=== PATIENT | female | born 1955 | race Caucasian/White ===

== ENCOUNTER 2017-12-25 11:56 | Emergency (ER) | payer MEDICAID ==
[~2017-12-25] VITALS: Ht 157.5 cm; Wt 62.0 kg
[2017-12-25 11:58] VITALS: BP 145/74; PULSE 79; RESP 16; TEMP 98.3; O2SAT 97
--- NOTE | 2017-12-25 13:54 | PD ---
HPI Chief Complaint: Injury Time Seen by Provider: 13:43 Travel History International Travel<30 days: No Contact w/Intl Traveler<30days: No Traveled to known affect area: No History of Present Illness HPI 62-year-old female presents to the emergency department for evaluation of left wrist injury that occurred last night. She states she tripped over her own feet and fell yesterday. She denies any head injury or LOC. No neck pain or back pain. No chest pain or abdominal pain. No nausea, vomiting, diarrhea. She has been ambulatory without difficulty. Her only complaint is left dorsal wrist pain since the fall. Pain is 10/10 without radiation, aching and throbbing. Patient has a Velcro left wrist brace in place. She is not on anticoagulants. No other complaints. Moderate severity. Movement exacerbates pain. Resting will help alleviate pain. PFSH Past Medical History ?: Not Social History Alcohol Use: No Tobacco Use: Yes Substance Use: No Allergies-Medications (Allergen,Severity, Reaction): Coded Allergies: No Known Allergies (Unverified , 12/25/17) Reported Meds & Prescriptions Reported Meds & Active Scripts Active Tramadol (Tramadol HCl) 50 Mg Tab 50 Mg PO Q6H PRN Reported Duoneb (Ipratropium-Albuterol Neb) 0.5-2.5 Mg/3 Ml Neb 1 Nebule INH Q6HR NEB Celexa (Citalopram Hydrobromide) 20 Mg Tab 20 Mg PO DAILY Protonix (Pantoprazole Sodium) 40 Mg Tab 40 Mg PO DAILY Atorvastatin (Atorvastatin Calcium) 80 Mg Tab 80 Mg PO HS Vitamin D2 (Ergocalciferol) 2,000 Unit Tab 50,000 Units PO DAILY Metoprolol Tartrate 50 Mg Tab 50 Mg PO BID Cyanocobalamin Inj (Cyanocobalamin) 1,000 Mcg/Ml Inj 1,000 Mcg SQ Q30D Plavix (Clopidogrel Bisulfate) 75 Mg Tab 75 Mg PO DAILY Review of Systems Except as stated in HPI: all other systems reviewed are Neg Physical Exam Narrative GENERAL: Well-nourished, well-developed female patient, afebrile. SKIN: Focused skin assessment warm/dry. HEAD: Normocephalic. Atraumatic. EYES: No scleral icterus. No injection or drainage. NECK: Supple, trachea midline. No JVD or lymphadenopathy. CARDIOVASCULAR: Regular rate and rhythm without murmurs, gallops, or rubs. Left radial pulse 2+. RESPIRATORY: Breath sounds equal bilaterally. No accessory muscle use. Lungs sounds are clear to auscultation. GASTROINTESTINAL: Abdomen soft, non-tender, nondistended. MUSCULOSKELETAL: No cyanosis, or edema. Patient has tenderness over left dorsal wrist with reduced range of motion due to pain. No obvious deformity. She has full sensation to the distal left upper extremity. BACK: Nontender without obvious deformity. No CVA tenderness. 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 No evidence of fracture. Rudy Borrego MD Differential Diagnosis Wrist fracture versus sprain versus contusion Narrative Course 62-year-old female presents to the emergency department for evaluation of left wrist injury that occurred last night when she tripped and fell. She denies any other injury. X-ray of the left wrist no evidence of acute fracture, subluxation of the thumb , chronic. I discussed with patient who verbalizes agreement. She'll be discharged with a prescription for naproxen for pain. She has a wrist splint that she is already using. She is instructed ice and elevate. She verbalizes agreement. The patient was discharged in stable condition with instructions, including return instructions and follow up instructions. Diagnosis Primary Impression: Left wrist sprain Qualified Codes: S63.502A - Unspecified sprain of left wrist, initial encounter Referrals: Primary Care Physician call for appointment Patient Instructions: General Instructions, Narcotic given in the ED, Wrist Sprain (ED) Additional Instructions: Wear your wrist splint for support. Ice for 20 mins on, 20 mins off. Elevate. Take Tramadol as directed as needed for pain. Follow up with your primary care physician. Return to the emergency department for any acute, worsening of symptoms. Med/Other Pt SpecificInfo: Prescription(s) given Scripts Tramadol (Tramadol) 50 Mg Tab 50 MG PO Q6H Y for PAIN, #16 TAB 0 Refills Prov: Shelli Alexander 12/25/17 Disposition: 01 DISCHARGE HOME Condition: Stable Shelli Alexander Dec 25, 2017 13:54
[2017-12-25] MEDS ORDERED: ACETAMINOPHEN/HYDROcodone 325 MG/5 MG TAB PO ONE (14:00)
[2017-12-25] MEDS ORDERED: IPRASOL INH (14:14)
[2017-12-25] MEDS ORDERED: METO50TA PO (14:14)
[2017-12-25] MEDS ORDERED: ATOR80TA45 PO (14:14)
[2017-12-25] MEDS ORDERED: PLAV75TA29 PO (14:14)
[2017-12-25] MEDS ORDERED: CYAN1000P SQ (14:14)
[2017-12-25] MEDS ORDERED: ERGO2000 PO (14:14)
[2017-12-25] MEDS ORDERED: CELE20TA PO (14:14)
[2017-12-25] MEDS ORDERED: PROT40TA PO (14:14)
--- NOTE | 2017-12-25 14:48 | RADRPT ---
EXAM DATE/TIME: 12/25/2017 14:00 [place] COMPARISON: No previous studies available for comparison. INDICATIONS : Left wrist pain post fall. MEDICAL HISTORY : None. SURGICAL HISTORY : None. ENCOUNTER: Initial ACUITY: 2 days PAIN SCORE: 8/10 LOCATION: Left wrist. FINDINGS: 3 views left wrist. Bone alignment within normal limits. No evidence of fracture. Small thumb carpom etacarpal joint osteophytes and radial subluxation of the thumb metacarpal at the CMC joint. CONCLUSION: Thumb CMC joint osteoarthritic findings with radial subluxation of the metacarpal at the CMC joint. N o evidence of fracture. Rudy Borrego MD on December 25, 2017 at 14:44 Board Certified Radiologist. This report was verified electronically.
[2017-12-25] MEDS ORDERED: TRAM50TA PO (16:02)
[2017-12-25 16:09] VITALS: BP 135/70; PULSE 70; RESP 14; O2SAT 98
== END 2017-12-25 16:15 | disposition home or self-care (01) ==
LOC: NEPD 11:56
DX: S63.502A Unspecified sprain of left wrist, initial encounter (principal); W01.0XXA Fall on same level from slipping, tripping and stumbling without subsequent striking against object, initial encounter
CPT/HCPCS: 73110; 99283

== ENCOUNTER 2018-09-28 05:20 | Inpatient (IN) ==
[2018-09-28] MEDS ORDERED: Metoprolol Tartrate 25 MG Tablet PO ONE (05:48)
[2018-09-28] MEDS ORDERED: Chlorhexidine Gluconate 2% 1 Pack (2 Cloths) TOPICAL ONE (05:48)
[2018-09-28] MEDS ORDERED: Sodium Chlor 0.9% Inj 500 ML IV.SIG SCH (06:00)
--- NOTE | 2018-09-28 06:28 | XR ---
EXAM DATE: 09/28/2018 6:14 AM EDT AGE/SEX: 62 years / Female INDICATIONS: Evaluate for pneumonia, pneumothorax, or communicable diseases. CLINICAL DATA: This is the patient's initial encounter. Patient reports that signs and symptoms have been present for 1 day and indicates a pain score of 0/10. MEDICAL/SURGICAL HISTORY: None. None. COMPARISON: [facility], CT CHEST W/O CONTRAST, 08/02/2018. . FINDINGS: Faint nodular opacity seen of the right upper lobe. Radiographically, lungs otherwise appear clear. N o pneumonia. No pleural effusion or pneumothorax. Emphysema is noted. Heart size stable, within normal limits. CONCLUSION: No pneumonia, pneumothorax or evidence of communicable diseases. Faint nodular right upper lobe opaci ty without definite change from the prior CT. Emphysema.. Electronically signed by: Porter Cordero MD 09/28/2018 6:27 AM EDT
[2018-09-28] MEDS ORDERED: Bupivacaine 0.5% Inj 50 ML MDV Vial ONE (06:33)
[2018-09-28] MEDS ORDERED: ceFAZolin 2 GM Premix Inj 2 GM/50 ML PIGGYBACK IV.SIG ONE (06:33)
[2018-09-28] MEDS ORDERED: Nitroglycerin SL (Override) 0.4 MG Tab SL PRN (09:38)
[2018-09-28] MEDS ORDERED: Bisacodyl 10 MG Supp RECTAL PRN (09:39)
[2018-09-28] MEDS ORDERED: Post-op Orders (for Pharmacy) OTHER STA (09:39)
--- NOTE | 2018-09-28 10:01 | P.OP ---
- Preoperative Diagnosis (1) Lung mass (2) COPD (chronic obstructive pulmonary disease) Postoperative Diagnosis: same Date of procedure: 09/28/18 Procedure: Right thoracoscopic exploration for excisional biopsy right lung mass, bleb resection Anesthesia: MOISES Surgeon: Tejal Escalear MD Youth Liaison Officer: Porter Bartlett Estimated blood loss (mL): 50 Pathology: other (RUL bleb/lung biopsy, RUL mass) Operation and Findings: Indications: The patient is an 62y/o female with a hypermetabolic right upper lobe mass. Specimen: 1. RUL Bleb 2. RUL mass Drains: 32F chest tube Procedure Details After adequate general anesthesia the patient was placed in the left lateral decubitus position and the right chest was prepped and draped in usual manner. A small anterior port incision was performed and electrocautery was used to obtain hemostasis and carry the dissection down through the fascia. A port was placed posteriorly followed by the camera. Visualization was excellent. A second posterior port was positioned at ~6th intercostal space. Exploration of the right hemithorax was significant for diffuse parenchymal disease. The mass seen on chest CT could not be visualized with the camera, therefore a third lateral incision was performed to allow for palpation of the upper lobe in order to localize the small mass on CT_PET scan. A large upper lobe bleb was resected with a surgical stapler. A small nodule consistent with the imaging studies was found in the lateral RUL. The mass was resected using a surgical stapler. A 32F chest tube was positioned through the anterior port, and secured with a 0-silk suture. The lung was ventilated and no significant air leaks were found. The subcutaneous tissues of the posterior and lateral ports were approximated running 2-0 Vicryl suture and the skin was approximated using running 4-0 Monocryl subcuticular stitch. 0.5% Marcaine was infiltrated for postoperative analgesia. All sponge and history counts were correct at the close the procedure and the patient was transferred to the PACU in stable condition.
[2018-09-28] MEDS ORDERED: *morphine SULFATE 8 MG/ML PERIprocedure ONLY ONE (10:24)
[2018-09-28] MEDS ORDERED: *HYDROmorphone PF Inj 1 MG/ML Ampul PERIprocedural Use ONLY ONE ×2 (10:33→10:44)
--- NOTE | 2018-09-28 10:53 | XR ---
EXAM DATE: 09/28/2018 10:39 AM EDT AGE/SEX: 62 years / Female INDICATIONS: Post op ,right chest tube. CLINICAL DATA: This is the patient's initial encounter. Patient reports that signs and symptoms have been present for 1 day and indicates a pain score of 10/10. MEDICAL/SURGICAL HISTORY: . Hypertension. Congestive heart failure. Chronic obstructive pulmona ry disease. None. . RT. thorocotomy COMPARISON: [facility] [place], CHEST 1V SINGLE AP, 09/28/2018. . FINDINGS: A single AP view of the chest demonstrates increased density in the right upper lung. Right-sided devika st tubes are seen. No pneumothorax. Left lung relatively clear. Heart normal in size. There is some v olume loss on the right CONCLUSION: 1. Increased density in the right lung. 2. Right-sided chest tubes without pneumothorax. Electronically signed by: Polo Balderrama MD 09/28/2018 10:52 AM EDT
[2018-09-28] MEDS: Ketorolac Inj 30 MG/ML (IVP) Vial IV.PUSH SCH ×3 (10:57→23:03)
[2018-09-28] MEDS ORDERED: Naloxone Inj 0.4 MG/ML Vial ONE (11:16)
[2018-09-28] MEDS ORDERED: Succinylcholine Inj 200 MG/10 ML Vial ONE (11:19)
[2018-09-28] MEDS ORDERED: Dexmedetomidine Inj 200 MCG in Sodium Chlor 0.9% Inj 48 ML IV.CONT PRN (11:32)
--- NOTE | 2018-09-28 12:47 | P.PNCV ---
- Note Subjective/Hospital Course: pt initially seen in [facility] by Dr Escalera 62yr/ female hx of tobacco abuse, COPD presented to Dr Liz with a right upper lobe spiculated mass, as well as lytic lesions of the right 9th rib and sternum. She underwent percutaneous biopsies of the lung and rib lesion which were non-diagnostic. FEV1 0.8 liters, 35% predicted PMH : CHF, COPD, tobacco abuse, CAD, [place] ( stent 2014 ) HTN 09/28 pt electively admitted for surgery : Right thoracoscopic exploration for excisional biopsy right lung mass, bleb resection Objective: Vital Signs - 24 hr 09/28/18 06:12 09/28/18 10:00 09/28/18 10:15 Temperature 97.5 F L 97.6 F Pulse Rate 63 60 62 Respiratory Rate 20 12 15 Blood Pressure 180/94 H 144/65 H 133/61 Pulse Oximetry 94 L 93 L 95 09/28/18 10:30 09/28/18 10:45 09/28/18 11:00 Temperature Pulse Rate 74 66 63 Respiratory Rate 20 19 14 Blood Pressure 138/79 122/73 107/58 L Pulse Oximetry 90 L 93 L 89 L 09/28/18 11:15 09/28/18 11:30 09/28/18 11:45 Temperature Pulse Rate 76 74 71 Respiratory Rate 20 19 Blood Pressure 137/81 147/89 H 123/62 Pulse Oximetry 74 L 93 L 94 L 09/28/18 12:00 09/28/18 12:15 Temperature Pulse Rate 65 62 Respiratory Rate 18 13 Blood Pressure 99/57 L 100/55 L Pulse Oximetry 92 L 92 L Labs: Laboratory Results - last 12 hr 09/28/18 06:05 Blood Type O Positive Blood Type Recheck Required Antibody Screen Negative
--- NOTE | 2018-09-28 14:28 | ECG ---
Date Performed: 09/28/2018 Time Performed: 07:04:23 PTAGE: 62 years EKG: Sinus rhythm POSSIBLE INFERIOR MYOCARDIAL INFARCTION , OF INDETERMINATE AGE ABNORMAL ECG NO PREVIOUS TRACING DOCTOR: Leo Funez Interpretating Date/Time 09/28/2018 14:26:04
[2018-09-28] MEDS ORDERED: *Ondansetron Inj 4 MG/2 ML Vial PERIprocedural Use ONLY ONE (16:12)
[2018-09-28] MEDS ORDERED: *Promethazine Inj 25 MG/ML Vial PERIprocedural use ONLY ONE (17:07)
[2018-09-28] MEDS: Senna/Docusate Sodium 8.6/50 MG Tablet PO SCH (20:49)
[2018-09-28] MEDS: Metoprolol Tartrate 50 MG Tablet PO SCH (20:49)
[2018-09-28] MEDS ORDERED: FLUTICASONE SALMETEROL PO SCH (21:00)
[2018-09-28] MEDS ORDERED: GLYCOPYRROLATE FORMOTEROL PO SCH (21:00)
[2018-09-29] MEDS: Ketorolac Inj 30 MG/ML (IVP) Vial IV.PUSH SCH (04:11)
[2018-09-29 05:03] LABS: Baso % (Auto) 0.1 % (0.0-2.0); Eos % (Auto) 0.1 % (0.0-4.0); Hematocrit 35.8 % (35.0-46.0); Hemoglobin 11.9 gm/dL (11.6-15.3); Lymph # (Auto) 1.4 th/mm3 (1.0-4.8); Lymph % (Auto) 9.6 % (9.0-44.0); Mean Corpuscular HGB Conc 33.3 % (32.0-36.0); Mean Corpuscular Hemoglobin 32.8 pg (27.0-34.0); Mean Corpuscular Volume 98.6 fL (80.0-100.0); Mean Platelet Volume 8.4 fL (7.0-11.0); Mono # (Auto) 0.6 th/mm3 (0.0-0.9); Mono % (Auto) 4.2 % (0.0-8.0); Neut # (Auto) 12.1 th/mm3 (1.8-7.7); Platelet Count 199 th/mm3 (150-450); Red Blood Count 3.63 mil/mm3 (4.00-5.30); Red Cell Distribution Width 14.6 % (11.6-17.2); White Blood Count 14.1 th/mm3 (4.0-11.0)
[2018-09-29 05:21] LABS: Calcium 8.8 mg/dL (8.5-10.1); Carbon Dioxide 30.6 meq/L (21.0-32.0); Potassium 4.8 meq/L (3.5-5.1)
--- NOTE | 2018-09-29 05:47 | XR ---
EXAM DATE: 09/29/2018 5:35 AM EDT AGE/SEX: 62 years / Female INDICATIONS: Shortness of breath CLINICAL DATA: This is the patient's subsequent encounter. Patient reports that signs and symptoms h ave been present for 2 days and indicates a pain score of 10/10. MEDICAL/SURGICAL HISTORY: . Hypertension. Congestive heart failure. Chronic obstructive pulmona ry disease. . Right thoracotomy. COMPARISON: [facility] [place] 1[place] SINGLE AP, 09/28/2018. . FINDINGS: The cardiac silhouette is normal in transverse diameter. A right chest tube is in place. There is no evidence of pneumothorax. There is patchy alveolar disease on the right compatible with edema or pneu monia. There is subsegmental atelectasis in the left base. CONCLUSION: There is no evidence of pneumothorax. Right-sided edema versus pneumonia unchanged Electronically signed by: Alexey Arriola MD 09/29/2018 5:45 AM EDT
[2018-09-29] MEDS: Enoxaparin Inj 30 MG/0.3 ML Syringe SQ SCH (09:46)
[2018-09-29] MEDS: Senna/Docusate Sodium 8.6/50 MG Tablet PO SCH ×2 (09:46→20:48)
[2018-09-29] MEDS: Metoprolol Tartrate 50 MG Tablet PO SCH ×2 (09:46→20:47)
[2018-09-29] MEDS: Citalopram 20 MG Tablet PO SCH (09:56)
--- NOTE | 2018-09-29 11:02 | P.PNCV ---
- Note Subjective/Hospital Course: pt initially seen in [facility] by Dr Escalera 62yr/ female hx of tobacco abuse, COPD presented to Dr Liz with a right upper lobe spiculated mass, as well as lytic lesions of the right 9th rib and sternum. She underwent percutaneous biopsies of the lung and rib lesion which were non-diagnostic. FEV1 0.8 liters, 35% predicted PMH : CHF, COPD, tobacco abuse, CAD, [place] ( stent 2014 ) HTN 09/28 pt electively admitted for surgery : Right thoracoscopic exploration for excisional biopsy right lung mass, bleb resection 09/29 very painful add toradol and IV tylenol OOb ambulate leave chest tube in / place to water seal path pending Objective: Vital Signs - 24 hr 09/28/18 10:45 09/28/18 11:00 09/28/18 11:15 Temperature Pulse Rate 66 63 76 Respiratory Rate 19 14 Blood Pressure 122/73 107/58 L 137/81 Pulse Oximetry 93 L 89 L 74 L 09/28/18 11:30 09/28/18 11:45 09/28/18 12:00 Temperature Pulse Rate 74 71 65 Respiratory Rate 20 19 18 Blood Pressure 147/89 H 123/62 99/57 L Pulse Oximetry 93 L 94 L 92 L 09/28/18 12:15 09/28/18 12:30 09/28/18 12:45 Temperature Pulse Rate 62 62 64 Respiratory Rate 13 14 13 Blood Pressure 100/55 L 89/53 L 81/52 L Pulse Oximetry 92 L 88 L 90 L 09/28/18 13:00 09/28/18 13:15 09/28/18 13:30 Temperature Pulse Rate 63 60 66 Respiratory Rate 14 12 18 Blood Pressure 82/50 L 76/50 L 85/52 L Pulse Oximetry 92 L 90 L 91 L 09/28/18 13:45 09/28/18 14:00 09/28/18 14:15 Temperature 97.4 F L Pulse Rate 62 58 L 64 Respiratory Rate 18 14 17 Blood Pressure 89/50 L 92/50 L 118/58 L Pulse Oximetry 92 L 90 L 95 09/28/18 14:30 09/28/18 15:00 09/28/18 15:15 Temperature Pulse Rate 60 65 Respiratory Rate 17 14 12 Blood Pressure 86/50 L 112/66 Pulse Oximetry 98 92 L 09/28/18 16:00 11/01/18 17:00 09/28/18 17:29 Temperature 97.4 F L Pulse Rate 62 62 Respiratory Rate 14 16 16 Blood Pressure 104/65 112/57 L Pulse Oximetry 92 L 93 L 09/28/18 18:55 09/28/18 19:00 09/28/18 20:00 Temperature 97.5 F L 98.6 F Pulse Rate 52 L 80 62 Respiratory Rate 26 H 20 Blood Pressure 122/73 141/75 H Pulse Oximetry 09/28/18 21:00 09/28/18 22:00 09/28/18 23:00 Temperature 97.8 F Pulse Rate 64 59 L 62 Respiratory Rate 16 Blood Pressure 138/82 Pulse Oximetry 09/29/18 00:00 09/29/18 01:00 09/29/18 02:00 Temperature Pulse Rate 57 L 76 75 Respiratory Rate Blood Pressure Pulse Oximetry 09/29/18 03:00 09/29/18 04:00 09/29/18 04:13 Temperature 97.6 F Pulse Rate 88 64 67 Respiratory Rate 18 18 Blood Pressure 148/72 H Pulse Oximetry 09/29/18 05:00 09/29/18 05:51 09/29/18 07:00 Temperature 97.9 F Pulse Rate 62 74 74 Respiratory Rate 20 Blood Pressure 132/63 Pulse Oximetry 96 09/29/18 08:00 09/29/18 09:00 09/29/18 10:00 Temperature Pulse Rate 76 76 68 Respiratory Rate Blood Pressure Pulse Oximetry 09/29/18 10:12 09/29/18 10:19 09/29/18 10:26 Temperature Pulse Rate 99 H Respiratory Rate 20 18 Blood Pressure Pulse Oximetry 95 GENERAL: A&O x 3 SKIN: Warm and dry. incisions x 2 intact right posterior chest wall / HEAD: Normocephalic. EYES: No scleral icterus. No injection or drainage. NECK: Supple, trachea midline. No JVD or lymphadenopathy. CARDIOVASCULAR: Regular rate and rhythm without murmurs, gallops, or rubs. RESPIRATORY: Breath sounds equal bilaterally. No accessory muscle use. chest tube in place right lateral chest wall / no air leak GASTROINTESTINAL: Abdomen soft, non-tender, nondistended. MUSCULOSKELETAL: No cyanosis, or edema. BACK: Nontender without obvious deformity. No CVA tenderness. Labs: Laboratory Results - last 12 hr 09/29/18 09/29/18 04:23 04:23 WBC 14.1 H RBC 3.63 L Hgb 11.9 Hct 35.8 MCV 98.6 MCH 32.8 MCHC 33.3 RDW 14.6 Plt Count 199 MPV 8.4 Neut % (Auto) 86.0 H Lymph % (Auto) 9.6 [place] % (Auto) 4.2 Eos % (Auto) 0.1 Baso % (Auto) 0.1 Neut # (Auto) 12.1 H Lymph # (Auto) 1.4 [place] # (Auto) 0.6 Eos # (Auto) 0.0 Baso # (Auto) 0.0 WBC Differential . Differential Comment Auto diff final Sodium 138 Potassium 4.8 Chloride 101 Carbon Dioxide 30.6 Anion Gap 6 BUN 16 Creatinine 0.95 Estimated GFR 60 L Random Glucose 126 H Calcium 8.8 Result Diagrams: 09/29/18 04:23 09/29/18 04:23 - Plan (1) CAD (coronary artery disease) Plan: ASA, BB , statin (3) COPD (chronic obstructive pulmonary disease) Plan: nebs/ ezpap (4) S/P thoracotomy Plan: pulm toileting , pain control OOB ambulate place chest tube to water seal
[2018-09-29] MEDS ORDERED: Ketorolac Inj 30 MG/ML (IVP) Vial IV.PUSH PRN (11:03)
--- NOTE | 2018-09-29 13:11 | P.DCO ---
- Diagnosis (1) CAD (coronary artery disease) Status: Chronic (2) COPD (chronic obstructive pulmonary disease) Status: Chronic (3) Lung mass Status: Acute (4) S/P thoracotomy Status: Acute - Home Health Nursing Order: Medical education, Signs/symptoms of disease process, Wound care and dressing changes, Nursing assessment with vital signs Instructions: Thoracic Surgery patients Mandatory frequency Assess and evaluation, 2-3 x a week for one week Initial visit 1. Review post chest surgery instructions chest precautions, Activity, Elastic hose, Incision care, Driving, Incentive spirometry, Smoking, [place] , Work and other) 2. Need Betadine to paint incision 3. Medication reconciliation 4. Importance of follow up care/ check on appointments 5. Make calendar record temperature daily 6. When to call Home nurse, review instructions, phone list 7. Incentive Spirometry, demonstration Visit 1- Begin discharge instruction for patient family and/ or caregiver using teach back method- 1. Signs and symptoms of infection 2. Disease characteristics 3. Medicines and side effects 4. Foods and nutrition/ appetite 5. Infection control/ hand washing/ hygiene Visit 2- Continue teaching 1. Discharge instructions- include additional information on smoking cessation , Visit 3- Continue teaching- 1. Cough and deep breathing, incision monitoring. For any questions please call : / [facility] Cardi[facility] Incentive spirometry Q1 hr x 10, while awake, also use acapella device hourly whole Chest wall precautions: NO pushing or pulling, ( pt must use chest pillow support chest with all activities and with coughing Daily incision care: ok to shower ( 48hrs after chest tube removed) and then daily, no tub bath. Wash all incisions with liquid dial soap, clean wash cloth to each site, rinse and pat dry. Observe for any signs of infection, such as drainage which is dark yellow, dean, green or foul smelling. Immediately report to the surgeon any drainage from the chest incision, or legs, and for any abnormal drainage from the chest tube sites. Notify surgeon if any temp > 101.5 degrees F. When specialty dressing removed/ or if you do not have one, continue to shower daily as above, then rinse and pat incision dry and paint with betadine daily x 5 days. Allow steri strips to fall off if you have any. Avoid lotions, creams, salves, oils, etc. for the first month For Dr. Escalera patients , please obtain PA & Lat CXR in 2 weeks, results to Dr. Escalera ( prescription will be given) ( ) (Tele: [phone]) , F/U appointment: as per [facility] instructions: PCP in 2 weeks, CV surgeon 2 weeks, Consultant In [employer] Safety 3-4 weeks For any questions regarding incisions/ dressing / meds / post op care or above Symptoms, Tuesday 8am-5pm Heart & Vascular Surgery Office ( Dr. Landa & Dr. Escalera), After Hours / Nights (5pm -8am) Weekends and Holidays Please call [facility] Cardiac Intermediate Care Unit (CIC) Charge Nurse - Case Management Consult Yes - Certification I have seen patient Shirley Garcia on 09/29/18. My clinical findings support the need for the requested home health care services because: Patient has SOB I certify that my clinical findings support that this patient is homebound because: Post-op weakness
[2018-09-30] MEDS: Enoxaparin Inj 30 MG/0.3 ML Syringe SQ SCH (10:00)
[2018-09-30] MEDS: Senna/Docusate Sodium 8.6/50 MG Tablet PO SCH ×2 (10:00→20:45)
[2018-09-30] MEDS: Metoprolol Tartrate 50 MG Tablet PO SCH ×2 (10:00→20:45)
[2018-09-30] MEDS: Citalopram 20 MG Tablet PO SCH (11:06)
--- NOTE | 2018-09-30 11:18 | P.PNCV ---
- Note Subjective/Hospital Course: pt initially seen in [facility] by Dr Escalera 62yr/ female hx of tobacco abuse, COPD presented to Dr Liz with a right upper lobe spiculated mass, as well as lytic lesions of the right 9th rib and sternum. She underwent percutaneous biopsies of the lung and rib lesion which were non-diagnostic. FEV1 0.8 liters, 35% predicted PMH : CHF, COPD, tobacco abuse, CAD, [place] ( stent 2014 ) HTN 09/28 pt electively admitted for surgery : Right thoracoscopic exploration for excisional biopsy right lung mass, bleb resection 09/29 very painful add toradol and IV tylenol OOb ambulate leave chest tube in / place to water seal path pending 09/30 Chest tube still draining copious serous fluid. 240 cc in the last shift Maintain chest tube to suction Reevaluate for removal in a.m. Objective: Vital Signs - 24 hr 09/29/18 12:00 09/29/18 13:00 09/29/18 14:00 Temperature Pulse Rate 72 76 86 Respiratory Rate Blood Pressure Pulse Oximetry 09/29/18 15:00 09/29/18 16:00 09/29/18 17:00 Temperature Pulse Rate 86 76 87 Respiratory Rate 18 Blood Pressure Pulse Oximetry 09/29/18 17:21 09/29/18 18:00 09/29/18 19:00 Temperature 98.6 F Pulse Rate 82 70 Respiratory Rate 16 18 Blood Pressure 132/66 Pulse Oximetry 98 09/29/18 20:00 09/29/18 20:02 09/29/18 21:00 Temperature Pulse Rate 74 74 Respiratory Rate Blood Pressure Pulse Oximetry 94 L 09/29/18 22:00 09/29/18 23:00 09/30/18 00:00 Temperature 98.5 F Pulse Rate 68 72 68 Respiratory Rate 18 Blood Pressure 129/61 Pulse Oximetry 97 09/30/18 01:00 09/30/18 02:00 09/30/18 03:00 Temperature 98.9 F Pulse Rate 64 68 84 Respiratory Rate 22 Blood Pressure 165/77 H Pulse Oximetry 97 09/30/18 04:00 09/30/18 05:00 09/30/18 06:00 Temperature Pulse Rate 71 71 65 Respiratory Rate Blood Pressure Pulse Oximetry 09/30/18 09:00 Temperature Pulse Rate 77 Respiratory Rate 14 Blood Pressure Pulse Oximetry Result Diagrams: 09/29/18 04:23 09/29/18 04:23 - Plan (1) CAD (coronary artery disease) Plan: ASA, BB , statin (2) COPD (chronic obstructive pulmonary disease) Plan: nebs/ ezpap (4) S/P thoracotomy Plan: pulm toileting , pain control OOB ambulate place chest tube to water seal
--- NOTE | 2018-10-01 09:48 | P.PNCV ---
- Note Subjective/Hospital Course: pt initially seen in [facility] by Dr Escalera 62yr/ female hx of tobacco abuse, COPD presented to Dr Liz with a right upper lobe spiculated mass, as well as lytic lesions of the right 9th rib and sternum. She underwent percutaneous biopsies of the lung and rib lesion which were non-diagnostic. FEV1 0.8 liters, 35% predicted PMH : CHF, COPD, tobacco abuse, CAD, [place] ( stent 2014 ) HTN 09/28 pt electively admitted for surgery : Right thoracoscopic exploration for excisional biopsy right lung mass, bleb resection 09/29 very painful add toradol and IV tylenol OOb ambulate leave chest tube in / place to water seal path pending 09/30 Chest tube still draining copious serous fluid. 240 cc in the last shift Maintain chest tube to suction Reevaluate for removal in a.m. 10/01 Doing well DC chest tube today Discharge home later today Objective: Vital Signs - 24 hr 09/30/18 11:00 09/30/18 12:00 09/30/18 13:00 Temperature 99.1 F Pulse Rate 78 76 76 Respiratory Rate 18 Blood Pressure 155/73 H Pulse Oximetry 93 L 09/30/18 14:00 09/30/18 15:00 09/30/18 16:00 Temperature 98.9 F Pulse Rate 80 91 H 86 Respiratory Rate 20 Blood Pressure 158/78 H Pulse Oximetry 92 L 09/30/18 17:00 09/30/18 18:00 09/30/18 19:00 Temperature 98.5 F Pulse Rate 84 80 80 Respiratory Rate 24 Blood Pressure 144/71 H Pulse Oximetry 90 L 09/30/18 20:00 09/30/18 21:00 09/30/18 21:18 Temperature Pulse Rate 80 78 68 Respiratory Rate 16 Blood Pressure Pulse Oximetry 94 L 09/30/18 22:00 09/30/18 23:00 10/01/18 00:00 Temperature 99.1 F Pulse Rate 74 75 64 Respiratory Rate 24 Blood Pressure 129/72 Pulse Oximetry 96 10/01/18 01:00 EDT 10/01/18 01:00 EST 10/01/18 02:00 Temperature Pulse Rate 60 77 73 Respiratory Rate Blood Pressure Pulse Oximetry 10/01/18 03:00 10/01/18 04:00 10/01/18 05:00 Temperature Pulse Rate 70 70 65 Respiratory Rate Blood Pressure Pulse Oximetry 10/01/18 06:00 10/01/18 07:00 10/01/18 09:00 Temperature 97.9 F Pulse Rate 69 79 67 Respiratory Rate 18 14 Blood Pressure 137/80 Pulse Oximetry 92 L 10/01/18 09:17 Temperature Pulse Rate Respiratory Rate Blood Pressure Pulse Oximetry 90 L Result Diagrams: 09/29/18 04:23 09/29/18 04:23 - Plan (1) CAD (coronary artery disease) Plan: ASA, BB , statin (2) COPD (chronic obstructive pulmonary disease) Plan: nebs/ ezpap (4) S/P thoracotomy Plan: pulm toileting , pain control OOB ambulate place chest tube to water seal
--- NOTE | 2018-10-01 09:52 | P.DS ---
Date of admission: 09/28/18 05:20 Primary care physician: Arturo Lambert Attending physician on discharge: Tejal Escalera Anticipated date of discharge: 10/01/18 Brief History from admission: 62yr/ female hx of tobacco abuse, COPD presented to Dr Liz with a right upper lobe spiculated mass, as well as lytic lesions of the right 9th rib and sternum. She underwent percutaneous biopsies of the lung and rib lesion which were non-diagnostic. FEV1 0.8 liters, 35% predicted PMH : CHF, COPD, tobacco abuse, CAD, [place] ( stent 2014 ) HTN DS: Diagnosis - Discharge Diagnosis (1) CAD (coronary artery disease) Status: Chronic (2) COPD (chronic obstructive pulmonary disease) Status: Chronic (3) Lung mass Status: Acute (4) S/P thoracotomy Status: Acute DS: Medications - Discharge Medications Prescriptions: hydrocodone-acetaminophen 1 tab PO Q4H PRN #40 tab PRN Reason: Pain Scale 3 To 5 DS: Summary Hospital Course: 62yr/ female hx of tobacco abuse, COPD presented to Dr Liz with a right upper lobe spiculated mass, as well as lytic lesions of the right 9th rib and sternum. She underwent percutaneous biopsies of the lung and rib lesion which were non-diagnostic. FEV1 0.8 liters, 35% predicted PMH : CHF, COPD, tobacco abuse, CAD, [place] ( stent 2014 ) HTN 09/28 pt electively admitted for surgery : Right thoracoscopic exploration for excisional biopsy right lung mass, bleb resection 09/29 very painful add toradol and IV tylenol OOb ambulate leave chest tube in / place to water seal path pending 09/30 Chest tube still draining copious serous fluid. 240 cc in the last shift Maintain chest tube to suction Reevaluate for removal in a.m. 10/01 Doing well DC chest tube today Discharge home later today - Time Spent with Patient Total time spent providing and/or coordinating discharge services: Greater than 30 minutes - Quality: VTE Deep Vein Thrombosis/Pulmonary Embolism Present on Admission: No Exam Vital signs: Vital Signs 09/30/18 11:00 09/30/18 12:00 09/30/18 13:00 Temperature 99.1 F Pulse Rate 78 76 76 Respiratory Rate 18 Blood Pressure 155/73 H Pulse Oximetry 93 L 09/30/18 14:00 09/30/18 15:00 09/30/18 16:00 Temperature 98.9 F Pulse Rate 80 91 H 86 Respiratory Rate 20 Blood Pressure 158/78 H Pulse Oximetry 92 L 09/30/18 17:00 09/30/18 18:00 09/30/18 19:00 Temperature 98.5 F Pulse Rate 84 80 80 Respiratory Rate 24 Blood Pressure 144/71 H Pulse Oximetry 90 L 09/30/18 20:00 09/30/18 21:00 09/30/18 21:18 Temperature Pulse Rate 80 78 68 Respiratory Rate 16 Blood Pressure Pulse Oximetry 94 L 09/30/18 22:00 09/30/18 23:00 10/01/18 00:00 Temperature 99.1 F Pulse Rate 74 75 64 Respiratory Rate 24 Blood Pressure 129/72 Pulse Oximetry 96 10/01/18 01:00 EDT 10/01/18 01:00 EST 10/01/18 02:00 Temperature Pulse Rate 60 77 73 Respiratory Rate Blood Pressure Pulse Oximetry 10/01/18 03:00 10/01/18 04:00 10/01/18 05:00 Temperature Pulse Rate 70 70 65 Respiratory Rate Blood Pressure Pulse Oximetry 10/01/18 06:00 10/01/18 07:00 10/01/18 09:00 Temperature 97.9 F Pulse Rate 69 79 67 Respiratory Rate 18 14 Blood Pressure 137/80 Pulse Oximetry 92 L 10/01/18 09:17 Temperature Pulse Rate Respiratory Rate Blood Pressure Pulse Oximetry 90 L Intake & Output 09/30/18 10/01/18 10/01/18 19:59 06:59 18:59 Intake Total Output Total Balance Weight Intake: IV LR 1000 mL Inj 1,000 ML @ 100 mls/hr IV.SIG .Q10H [facility] Rx#: [id number] Oral Output: Urine Chest Tube Drainage #1 Right Upper Other: Date of Last Bowel Movement 10/01/18 # Bowel Movements Results Procedures completed during hospitalization: Right thoracoscopic exploration for excisional biopsy right lung mass, bleb resection Pending studies at discharge: Pending at discharge 09/28/18 10:39 Surgical [PTH] Routine - Impressions ITS Impressions Chest X-Ray 09/29/18 06:00 CONCLUSION: There is no evidence of pneumothorax. Right-sided edema versus pneumonia unchanged Discharge Plan - Discharge Disposition Patient Disposition: /Home Health Service - Discharge Condition Condition: Good - Discharge Order Discharge Orders: Discharge Order (Routine); Ordered 10/01/18 Ordered By: Jesse Garciaanna - Discharge Details Anticipated Discharge Date: 10/01/18 - Physicians Team Primary Care Provider: Arturo Lambert Attending Provider: Tejal Escalera Other Providers: Tomás Liz MD - Rxs /Orders / Referrals /Forms Prescriptions: New docusate sodium [Colace] 100 mg Capsule 100 mg PO BID Qty: 30 RF: 0 hydrocodone-acetaminophen 5-325 mg Tablet 1 tab PO Q4H PRN (Reason: Pain Scale 3 To 5) Qty: 40 RF: 0 Continue aspirin [Aspir-81] 81 mg Tablet,Delayed Release (Dr/Ec) 81 mg PO DAILY atorvastatin [Lipitor] 80 mg Tablet 80 mg PO DAILY citalopram 20 mg Tablet 20 mg PO DAILY clopidogrel 75 mg Tablet 75 mg PO DAILY ergocalciferol (vitamin D2) 2,500 unit Capsule 5,000 unit PO QMONTH fluticasone-salmeterol 230-21 mcg/actuation Hfa Aerosol Inhaler 2 puff INHALATION BID glycopyrrolate-formoterol [Bevespi Aerosphere] 9-4.8 mcg Hfa Aerosol Inhaler 2 puff INHALATION QAM AND QPM metoprolol tartrate 50 mg Tablet 50 mg PO BID nitroglycerin [Nitrostat] 0.4 mg Tablet, Sublingual 0.4 mg SUBLINGUAL Q5-15M PRN (Reason: Chest Pain) pantoprazole 40 mg Tablet,Delayed Release (Dr/Ec) 40 mg PO DAILY Ambulatory Orders / Order Sets / DME: XR chest 2V PA&LAT (Routine) Timeframe: 2 Weeks Location: Determined by Patient Ordered By: Jocelyne Choi Referrals: Arturo Lambert, [Primary Care Provider] - See Instructions ( Your appointment has been scheduled for [10/16/18] at [11:30 AM] If you cannot make this appointment, please call the office to reschedule ) Tomás Liz MD [Physician] - See Instructions ( Your appointment has been scheduled for [10/12/18] at [2:15 PM] If you cannot make this appointment, please call the office to reschedule ) Jocelyne Choi [[facility] RN PRACTITIONER] - See Instructions ( Your appointment has been scheduled for [10/26/18] at [10:45AM] If you cannot make this appointment, please call the office to reschedule ) - Discharge Instructions Additional Instructions: Incentive spirometry Q1 hr x 10, while awake, also use acapella device hourly whole Chest wall precautions: NO pushing or pulling, ( pt must use chest pillow support chest with all activities and with coughing Daily incision care: ok to shower ( 48hrs after chest tube removed) and then daily, no tub bath. Wash all incisions with liquid dial soap, clean wash cloth to each site, rinse and pat dry. Observe for any signs of infection, such as drainage which is dark yellow, dean, green or foul smelling. Immediately report to the surgeon any drainage from the chest incision, or legs, and for any abnormal drainage from the chest tube sites. Notify surgeon if any temp > 101.5 degrees F. When specialty dressing removed/ or if you do not have one, continue to shower daily as above, then rinse and pat incision dry and paint with betadine daily x 5 days. Allow steri strips to fall off if you have any. Avoid lotions, creams, salves, oils, etc. for the first month For Dr. Escalera patients , please obtain PA & Lat CXR in 2 weeks, results to Dr. Escalera ( prescription will be given) ( ) (Tele: ) , F/U appointment: as per DC instructions: PCP in 2 weeks, CV surgeon 2 weeks, Lsw 3-4 weeks For any questions regarding incisions/ dressing / meds / post op care or above Symptoms, Tuesday 8am-5pm Heart & Vascular Surgery Office ( Dr. Landa & Dr. Escalera), After Hours / Nights (5pm -8am) Weekends and Holidays Please call [facility] Card[facility] Unit ([facility]) Charge Nurse
[2018-10-01] MEDS: Enoxaparin Inj 30 MG/0.3 ML Syringe SQ SCH (10:28)
[2018-10-01] MEDS: Senna/Docusate Sodium 8.6/50 MG Tablet PO SCH (10:28)
[2018-10-01] MEDS: Metoprolol Tartrate 50 MG Tablet PO SCH (10:28)
[2018-10-01] MEDS: Citalopram 20 MG Tablet PO SCH (10:28)
== END 2018-10-01 14:16 | disposition home health service (06) ==
LOC: HSDI 05:20 → HCPC 18:30
PROVIDERS: ADMIT Thoracic Surgery (Cardiothoracic Vascular Surgery); ATTEND Thoracic Surgery (Cardiothoracic Vascular Surgery)